=== PATIENT | male | born 1960 | race Caucasian/White ===

== ENCOUNTER 2018-12-10 14:51 | Emergency (ER) | payer SELFPAY ==
[~2018-12-10 14:51] MED LIST: HYDR-653 PO; TADA20TA33 PO
--- NOTE | 2018-12-10 15:00 | ER Report ---
History and Physical Time Seen By MD: 15:00 Hx. of Stated Complaint: PATIENT REPORTS PAIN IN HIS RIGHT LEG FOR THE LAST MONTH HPI/ROS CHIEF COMPLAINT: right leg pain HISTORY OF PRESENT ILLNESS: 58 year old male presents to ED with right leg pain. Reports the pain has been present for about 1 month. The pain significantly worsened today. Rates pain an 8 out of 10 that is sharp, stabbing, and shooting. The pain starts at his hip and shoots down to his ankle- it runs along the lateral aspect of his leg. States he has taken ibuprofen for the pain with minimal relief. He has also been to a chiropractor, but chiropractor stated he didn't think he could do much for him. He has no previous injury to the area. REVIEW OF SYSTEMS: Respiratory: No cough, no dyspnea. Cardiovascular: No chest pain, no palpitations. Gastrointestinal: No vomiting, no abdominal pain. Musculoskeletal: No back pain. Right leg pain as described in HPI. Allergies: Coded Allergies: No Known Drug Allergies (Unverified , 12/18/17) VERIFIED 12/18/17 Home Meds Active Scripts Diclofenac Sodium (DICLOFENAC SODIUM) 75 Mg Tablet.dr, 75 MG PO BID, #20 TAB Prov:YIN SALDAÑA BUTADIENE CONVERTER OPERATOR 12/10/18 Cyclobenzaprine Hcl (CYCLOBENZAPRINE HCL) 10 Mg Tablet, 10 MG PO TID PRN for MUSCLE SPASMS, #15 TAB Prov:YIN SALDAÑA BUTADIENE CONVERTER OPERATOR 12/10/18 Tadalafil (CIALIS) 20 Mg Tablet, 20 MG PO PRN, #6 TAB 5 Refills Prov:CHAN CRUZ APRN BUTADIENE CONVERTER OPERATOR-C 11/26/18 Past Medical/Surgical History Past medical hx of fractures, vision problems No significant past surgical hx Reviewed Nurses Notes: Yes Smoking Status: Current: Every Day Smoker Hx Substance Use Disorder: No Constitutional Vital Sign - Last 24 Hours 12/10/18 12/10/18 12/10/18 12/10/18 14:55 14:56 15:00 15:21 Temp 98.2 Pulse 71 78 Resp 24 B/P (MAP) 158/98 158/98 (118) 136/71 (92) Pulse Ox 91 92 O2 Delivery Room Air 12/10/18 12/10/18 12/10/18 12/10/18 15:30 16:00 16:21 16:30 Pulse 65 B/P (MAP) 123/77 (92) 134/89 (104) 136/88 (104) Pulse Ox 93 Physical Exam General Appearance: The patient is alert, has no immediate need for airway protection and no current signs of toxicity. Eyes: Pupils equal and round no injection. Respiratory: Chest is non tender, lungs are clear to auscultation. Cardiac: regular rate and rhythm Gastrointestinal: Abdomen is soft and non tender, no masses, bowel sounds normal. Musculoskeletal: Neck: Neck is supple and non tender. Lateral aspect of right leg is tender from hip down to his ankle. Upon palpation, muscles tight on lateral aspect of hip and leg. Extremities have full range of motion and are non tender. Skin: No rashes or lesions. DIFFERENTIAL DIAGNOSIS: After history and physical exam differential diagnosis was considered for sciatica, muscle spasms, disc disease. Medical Decision Making EKG/Imaging Imaging Exam type: HIP RIGHT History: hip pain Comparison: None. Findings: Two views of the right hip demonstrates no evidence of acute fracture dislocatio n or significant arthritic change. No evidence of lytic or blastic bone lesion IMPRESSION: 1. No acute osteoarticular abnormality of the right hip is seen Report Dictated By: Eunice Edwards MD at 12/10/2018 4:15 PM Report E-Signed By: Eunice Edwards MD at 12/10/2018 4:16 PM Exam type: L-SPINE >4 VIEWS History: Right leg pain Comparison: None. Findings: There five nonrib-bearing lumbar-type vertebral bodies present. Small marginal tracer seen throughout the lumbar spine. There is no evidence of acute fractures or subluxations. There are mild degenerative changes of the facet joints bilaterally at L4-5 and L5-S1 IMPRESSION: 1. Mild spondylotic changes of the lumbar spine Report Dictated By: Eunice Edwards MD at 12/10/2018 4:13 PM Report E-Signed By: Eunice Edwards MD at 12/10/2018 4:15 PM Exam type: SACROILIAC JOINT 3 OR > VIEWS History: Right leg pain Comparison: None. Findings: The SI joints appear symmetric bilaterally. No evidence of significant arthritic change. No gross evidence of fracture. No evidence of lytic or blastic lesion. IMPRESSION: 1. No radiographic abnormality the SI joints noted Report Dictated By: Eunice Edwards MD at 12/10/2018 4:12 PM Report E-Signed By: Eunice Edwards MD at 12/10/2018 4:13 PM ED Course/Re-evaluation ED Course Patient was admitted to examined, history and physical were obtained. Differential diagnoses were considered. On examination lungs are clear, heart is regular, abdomen soft nontender. Patient did have some tenderness around the right hip. I believe this is likely related to his low back. And x-rays done of the lumbar spine, SI joints and right hip. Imaging results were negative. I discussed the findings with the patient. We will go ahead and discharge patient home. Patient did receive a dose of Toradol IM here in the emergency room as well as a muscle relaxer. He states that he did have some improvement with the Toradol. He states that it took the edge off. Patient will be discharged home with a prescription of muscle relaxer and anti-inflammatory. He is follow-up with primary care provider next week. If there is no improvement 97 they would refer for physical therapy and may ultimately need to follow-up with orthopedics. I discussed this with the patient who verbalized understanding and agreement with plan. Decision to Disposition Date: Dec 10, 2018 Decision to Disposition Time: 16:32 Depart Departure Latest Vital Signs Vital Signs Date Time Temp Pulse Resp B/P (MAP) Pulse Ox O2 Delivery O2 Flow Rate FiO2 12/10/18 16:30 136/88 (104) 12/10/18 16:21 65 93 12/10/18 14:55 98.2 24 Room Air Impression: Primary Impression: Sciatic leg pain Condition: Improved Disposition: HOME OR SELF-CARE New Scripts Diclofenac Sodium (DICLOFENAC SODIUM) 75 Mg Tablet.dr 75 MG PO BID, #20 TAB Prov: YIN SALDAÑA 12/10/18 Cyclobenzaprine Hcl (CYCLOBENZAPRINE HCL) 10 Mg Tablet 10 MG PO TID PRN for MUSCLE SPASMS, #15 TAB Prov: YIN SALDAÑA 12/10/18 Patient Instructions: Sciatica (ED) Additional Instructions: Limit activity by pain. Get plenty of rest. Take the medication as prescribed. Return to the ER if condition worsens. Follow up with your primary care provider in the next week. YIN SALDAÑA Dec 10, 2018 15:00
[2018-12-10] MEDS ORDERED: KETOROLAC 60 MG/2 ML VIAL IM ONE (15:25)
--- NOTE | 2018-12-10 16:19 | RADIOLOGY IMAGING REPORT ---
FACILITY: [facility] - [place] PATIENT NAME: Thai Hernandez : 1960 MR: [id number] V: [id number] EXAM DATE: ORDERING PHYSICIAN: YIN SALDAÑA TECHNOLOGIST: [place] [facility] [place] : 1960 Visit/Account:[id number] Date of Sevice: 12/10/2018 Exam type: SACROILIAC JOINT 3 OR > VIEWS History: Right leg pain Comparison: None. Findings: The SI joints appear symmetric bilaterally. No evidence of significant arthritic change. No gross e vidence of fracture. No evidence of lytic or blastic lesion. IMPRESSION: 1. No radiographic abnormality the SI joints noted Report Dictated By: Eunice Edwards MD at 12/10/2018 4:12 PM Report E-Signed By: Eunice Edwards MD at 12/10/2018 4:13 PM WSN:[email or web address]
[2018-12-10] MEDS ORDERED: CYCLOBENZAPRINE HCL 10 MG TAB PO ONE (16:20)
--- NOTE | 2018-12-10 16:20 | RADIOLOGY IMAGING REPORT ---
FACILITY: [facility] - [place] PATIENT NAME: Thai Hernandez : 1960 MR: [id number] V: [id number] EXAM DATE: ORDERING PHYSICIAN: YIN SALDAÑA TECHNOLOGIST: Location: [facility] Patient: Thai Hernandez : 1960 Visit/Account:[id number] Date of Sevice: 12/10/2018 Exam type: L-SPINE >4 VIEWS History: Right leg pain Comparison: None. Findings: There five nonrib-bearing lumbar-type vertebral bodies present. Small marginal tracer seen throughou t the lumbar spine. There is no evidence of acute fractures or subluxations. There are mild degener ative changes of the facet joints bilaterally at L4-5 and L5-S1 IMPRESSION: 1. Mild spondylotic changes of the lumbar spine Report Dictated By: Eunice Edwards MD at 12/10/2018 4:13 PM Report E-Signed By: Eunice Edwards MD at 12/10/2018 4:15 PM WSN:[email or web address]
--- NOTE | 2018-12-10 16:21 | RADIOLOGY IMAGING REPORT ---
[place] [facility] [place] Thai [place] : 1960 MR: [id number] V: [id number] EXAM DATE: ORDERING PHYSICIAN: YIN SALDAÑA TECHNOLOGIST: Location: [facility] - [place] Patient: Thai Hernandez : 1960 Visit/Account:[id number] Date of Sevice: 12/10/2018 Exam type: HIP RIGHT History: hip pain Comparison: None. Findings: Two views of the right hip demonstrates no evidence of acute fracture dislocation or significant arth ritic change. No evidence of lytic or blastic bone lesion IMPRESSION: 1. No acute osteoarticular abnormality of the right hip is seen Report Dictated By: Eunice Edwards MD at 12/10/2018 4:15 PM Report E-Signed By: Eunice Edwards MD at 12/10/2018 4:16 PM WSN:[email or web address]
[2018-12-10 16:30] VITALS: BP 136/88
[2018-12-10] MEDS ORDERED: DICL-195 PO (16:37)
[2018-12-10] MEDS ORDERED: CYCL10TA29 PO (16:37)
[2018-12-12] MEDS ORDERED: METH4TAB66 PO (15:16)
[2018-12-12] MEDS ORDERED: TRAM-420 PO (15:21)
== END 2018-12-10 16:53 | disposition home or self-care (01) ==
LOC: ER 15:02
DX: M54.31 Sciatica, right side (principal)
CPT/HCPCS: 72120; 72202; 73502; 96372; 99284; J1885